=== PATIENT | male | born 1975 | race Caucasian/White ===

== ENCOUNTER → 2020-08-28 | Outpatient (CLI) | payer OTHER | LOC: KOH-I 12:54 | DX: M79.671 Pain in right foot (principal); R26.2 Difficulty in walking, not elsewhere classified; W01.0XXA Fall on same level from slipping, tripping and stumbling without subsequent striking against object, initial encounter; M25.474 Effusion, right foot | CPT/HCPCS: 73700 ==

== ENCOUNTER → 2020-08-31 | Outpatient (CLI) | payer OTHER | LOC: KOH-I 11:15 | DX: S93.601A Unspecified sprain of right foot, initial encounter (principal); R26.2 Difficulty in walking, not elsewhere classified; R60.0 Localized edema | CPT/HCPCS: 73718 ==